=== PATIENT | female | born 1945 | race Caucasian/White ===

== ENCOUNTER → 2016-09-28 | Outpatient (CLI) | payer OTHER, BC | LOC: EKG 11:45 | PROVIDERS: ATTEND Nurse Practitioner Family | DX: M25.551 Pain in right hip (principal); E03.9 Hypothyroidism, unspecified; I10 Essential (primary) hypertension; Z86.39 Personal history of other endocrine, nutritional and metabolic disease | CPT/HCPCS: 99214 ==

== ENCOUNTER → 2016-09-28 | Outpatient (CLI) | payer OTHER, BC ==
[2016-09-28 13:26] LABS: BASOPHILS # (AUTO) 0.02 10*3/UL; BASOPHILS % (AUTO) 0.4 % (0-1); EOSINOPHILS % (AUTO) 6.9 % (0-8); HEMOGLOBIN 13.4 g/dL (12.0-16.0); IMM GRAN % (AUTO) 0.2 % (0-5); IMM GRAN# (AUTO) 0.01 10*3/UL; LYMPHOCYTES # (AUTO) 1.42 10*3/uL; LYMPHOCYTES % (AUTO) 28.9 % (10-50); MEAN CORPUSCULAR HEMOGLOBIN 27.3 PG (27-31); MEAN CORPUSCULAR HGB CONC 31.9 g/dL (33-37); MEAN PLATELET VOLUME 10.3 FL (7.4-12.2); MONOCYTES % (AUTO) 10.2 % (5-15); NEUTROPHILS # (AUTO) 2.62 10*3/UL; NEUTROPHILS % (AUTO) 53.4 % (50-80); RDW COEFFICIENT OF VARIATION 16.2 % (11.5-14.5); WHITE BLOOD COUNT 4.91 10^3/uL (4.8-10.8)
[2016-09-28 13:27] LABS: PLATELET MORPHOLOGY COMMENT NORMAL MORPHOLOGY (NORM)
[2016-09-28 14:00] LABS: POTASSIUM 4.4 meq/L (3.8-5.2); SODIUM 141 meq/L (135-145)
[2016-09-28 14:01] LABS: ASPARTATE AMINO TRANSFERASE 17 IU/L (8-39); BILIRUBIN,TOTAL 0.7 mg/dL (0.3-1.2); BLOOD UREA NITROGEN 16 mg/dL (7-22); BUN/CREATININE RATIO 26.66 (6-20); CALCIUM 9.8 mg/dL (8.7-10.7); CHLORIDE 102 meq/L (98-112); CREATININE 0.6 mg/dL (0.50-1.20); EST GLOMERULAR FILTRATION > 60 (>60 ml/min/1.73m(2)); GLUCOSE 71 mg/dL (78-110); TOTAL PROTEIN 6.9 g/dL (6.1-8.0)
[2016-09-28 14:02] LABS: HDL CHOLESTEROL 71 mg/dL (40-150); TRIGLYCERIDES 134 mg/dL (44-200)
[2016-09-30 07:14] LABS: PARATHYROID HORMONE 33 pg/mL (15-65)
== END ==
LOC: MOB LAB 11:53
PROVIDERS: ATTEND Nurse Practitioner Family
DX: M25.551 Pain in right hip (principal); E03.9 Hypothyroidism, unspecified; I10 Essential (primary) hypertension; E89.2 Postprocedural hypoparathyroidism
CPT/HCPCS: 36415; 80053; 80061; 83970; 84443; 85025; 86900; 86901; 87641; G0463; 99214

== ENCOUNTER → 2016-10-02 | Outpatient (CLI) | payer OTHER, BC ==
--- NOTE | 2016-10-02 12:34 | EKG ---
[address] [address] Measurements Intervals [place] Rate: 68 P: 9 NM: 183 QRS: 1 QRSD: 95 T: 22 QT: 388 QTc: 406 Interpretive Statements SINUS RHYTHM Compared to ECG 03/21/2016 14:46:08 No significant changes Electronically Signed On 10-02-16 17:56:32 MST by Jeffrey Martinez [email or web address]
== END ==
LOC: EKG 12:17
PROVIDERS: ATTEND Nurse Practitioner Family
DX: M25.551 Pain in right hip (principal); I10 Essential (primary) hypertension
CPT/HCPCS: 93005; 93010

== ENCOUNTER → 2016-11-16 | Outpatient (CLI) | payer OTHER, BC | LOC: MMPC 09:00 | PROVIDERS: ATTEND Nurse Practitioner Family | DX: R05 Cough (principal); J45.909 Unspecified asthma, uncomplicated | CPT/HCPCS: 99213; G0463 ==

== ENCOUNTER → 2016-11-22 | Outpatient (CLI) | payer OTHER, BC | LOC: MMPC 09:00 | PROVIDERS: ATTEND Nurse Practitioner Family | DX: J45.21 Mild intermittent asthma with (acute) exacerbation (principal) | CPT/HCPCS: 99214; G0463 ==

== ENCOUNTER → 2016-11-26 | Outpatient (CLI) | payer OTHER, BC ==
[2016-11-26 11:13] LABS: BILIRUBIN,URINE NEGATIVE (NEG); CLARITY,URINE CLEAR (CLEAR); GLUCOSE, URINE (UA) NEGATIVE (NEG); LEUKOCYTE ESTERASE ,URINE MODERATE (NEG); NITRATE,URINE NEGATIVE (NEG); OCCULT BLOOD,URINE SMALL (NEG); PH,URINE 5.5 (5.0-8.5); PROTEIN,URINE NEGATIVE (NEG); UROBILINOGEN,URINE 0.2 EU/dL (0.2)
[2016-11-26 11:20] LABS: URINE SAMPLE TYPE CLEAN CATCH URINE
[2016-11-26 11:21] LABS: BACTERIA,URINE MODERATE; WBC,URINE 35-40
== END ==
LOC: LAB 10:52
PROVIDERS: ATTEND Nurse Practitioner Family
DX: M54.5 Low back pain (principal); R30.0 Dysuria; R82.99 Other abnormal findings in urine
CPT/HCPCS: 81001; 87077; 87088; 87186

== ENCOUNTER 2017-02-02 14:20 | Emergency (ER) | payer OTHER, BC ==
[2017-02-02 15:00] VITALS: RESP 16; TEMP 97.2
--- NOTE | 2017-02-03 04:23 | PDOC ---
Lower Extremity Problem HPI - General Chief Complaint: Integumentary Stated Complaint: BLISTER ON LEFT KNEE Date Seen by Provider: 02/02/17 Time Seen by Provider: 14:25 Source: POSITIVE: Patient Exam Limitations: POSITIVE: No limitations Nurse's Notes Reviewed & Considered: Yes - History of Present Illness Initial Comments: The patient is a 71-year-old female. She states that this morning she noticed a blister to have been formed over her left patella. Patient has had bilateral knee and bilateral hip replacements. She states her left knee has been replaced twice; she states that she developed a staph infection in her left knee following her first replacement. Patient is therefore very concerned that she not develop any further infections to her knee. Yesterday the patient was watching her granddaughter play soccer and she states she may have sunburned the skin over her left knee, however she is not sunburned elsewhere. She was wearing short pants which terminated chest below the knee. She states that the blister is not particularly painful. It is located directly over the incision scar over her patella. Mild erythema around the blister. Patient has had no recent trauma. No sensory motor or vascular symptoms. Weightbearing is not painful. Range of motion is intact. No effusion. Body Location Affected: REPORTS: Lower Extremity (L) Timing: REPORTS: Gradual (As above; see diagram) Duration: <24 hours Severity: Mild Recent Injury: REPORTS: No Context of Injury: REPORTS: Other (Possible sunburn) Quality: REPORTS: Other (Lesion is not painful) Modifying Factors: REPORTS: Nothing Exacerbates Associated Symptoms: DENIES: Chest Pain, Shortness of Breath, Rapid Heart Rate, Fainting, Other Similar Symptoms Previously: No Recent Care Received: REPORTS: Denies - Patient Home Medications Home Medications: Home Medications Mirabegron [Myrbetriq] 25 mg PO DAILY tab 08/03/16 Lifitegrast [Xiidra] 1 each OP BID 09/28/16 Albuterol Sulfate [Albuterol Neb Soln] 2.5 mg IH QID #3 inhaler 11/15/16 Celecoxib [Celebrex] 1 cap ORAL BID #180 capsule 12/19/16 Esomeprazole Magnesium [Nexium] 1 cap ORAL QD #90 capsule 12/19/16 Fesoterodine Fumarate [Toviaz] 1 tab PO DAILY #10 tab 12/19/16 Fluticasone/Salmeterol [Advair 100-50 Diskus] 50 - 100 mcg INH PRN PRN #3 inhaler 12/19/16 Hydrochlorothiazide 1 tab PO DAILY #90 tab 12/19/16 Levothyroxine Sodium [Synthroid] 1 tab ORAL QD #90 tab NS 12/19/16 Lisinopril 1 tab ORAL QD #90 tab 12/19/16 Montelukast Sodium [Singulair] 1 tab ORAL QD #90 tab 12/19/16 Pregabalin [Lyrica] 1 cap PO BID #180 cap 01/02/17 Cephalexin [Keflex] 500 mg PO Q8H #30 cap 02/02/17 - Patient Allergies Allergies/Adverse Reactions: Allergies Allergy/AdvReac Type Severity Reaction Status Date / Time codeine [Codeine] Allergy Intermediate HALLUCINATI Verified 02/02/17 14:30 ONS latex Allergy Intermediate RASH Verified 02/02/17 14:30 meperidine HCl [From Demerol] Allergy Intermediate HALLUCINATI Verified 14:30 ONS nitrofurantoin Allergy Intermediate rash Verified 02/02/17 14:30 macrocrystalline [From Macrodantin] tramadol Allergy Intermediate Hives Verified 02/02/17 14:30 Past Medical History - heen HEENT History: Denies History Cardiovascular History: Hypertension Respiratory History: Asthma, Sleep Apnea, Home CPAP Use Gastrointestinal History: GERD Genitourinary History: Denies History, Other (please comment) Additional 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 Endocrine History: Hypothyroidism Musculoskeletal History: Fibromyalgia, Limited ROM, Joint Pain Prosthesis or Implant: Yes (L TKA, DENTAL ) Additional Musculoskeletal History: BILAT knee replacement, BILAT HIPS Neurological History: Denies History Blood Disorders: Denies History Additional Blood Disorders History: BLOOD CLOT IN RIGHT LEG IN HIGH SCHOOL Psychiatric History: Denies History History of Sexually Transmitted Diseases: No Cancer History: Denies History In Past Year Been Physically Harmed or Verbally Threatened: No History of MDRO: No History of Other Communicable Diseases: No Tobacco Use: Never Smoker Alcohol Use: Rarely Substance Use Type: None Previous Surgical History: Yes Type / Date of Surgery: T&A/ BILAT CARPAL TUNNEL RELEASE/ PARATHYROIDECTOMY/ LEFT TKA X 2/ TUBAL Anesthesia Reactions: No Malignant Hyperthermia: No Significant Family History: No pertinent family hx Past Medical History Reviewed: Reviewed - No Changes ROS - Limitations ROS Limitations: No Limitations Constitution: REPORTS: Denies Symptoms Cardiovascular: REPORTS: Denies Cardiac Symptoms Respiratory: REPORTS: Denies Resp Symptoms Neurological: REPORTS: Denies Neuro Symptoms Gastrointestinal: REPORTS: Denies GI Symptoms Endocrine: REPORTS: Denies Symptoms Musculoskeletal: REPORTS: Other (Blister form over her left patella over the surgical scar from her previous knee replacements) Genitourinary: REPORTS: Denies Symptoms Eyes: REPORTS: Denies Symptoms ENT: REPORTS: Denies Symptoms Skin: REPORTS: Other (Clear blister as above; see diagram) Immunologic: POSITIVE: Denies Symptoms Psychiatric: POSITIVE: Denies Psych Symptoms Lower Ext Problem Exam - General Appearance General Appearance: POSITIVE: Alert, Cooperative, No Acute Distress - Extremities Lower Extremity: POSITIVE: Normal Inspection, Non-Tender, No Pedal Edema, Other (Blister about 2 x 2 centimeter over her left patella; see diagram.) Joint Exam: POSITIVE: Joints Normal, Normal ROM, Normal Gait, Normal Weight Bearing Vascular: POSITIVE: No Vascular Compromise, Full Pulses, Equal Pulses - Neuro / Psych Neuro/Psych: POSITIVE: Sensation Normal, Motor Normal, Oriented to Person, Oriented to Place, Oriented to Time, coal passer Normal as Tested, Mood Appropriate, Affect Appropriate - Neck / Back / Pelvis Back / Neck: POSITIVE: Normal Inspection, Normal ROM - Skin Skin: POSITIVE: Erythema (Slight erythema surrounding blister as above;), Other (Blister, about 2 x 2 centimeters in dimension. Blister fluid is clear and does not appear purulent.) - Respiratory / CVS Respiratory / CVS: POSITIVE: No Respiratory Distress, Breath Sounds Normal, Regular Rate/Rhythm, Heart Sounds Normal Peripheral Pulses: Radial (R): 2+, Radial (L): 2+, Dorsalis-pedis (R): 2+, Dorsalis-pedis (L): 2+ Images - Uploaded Photos Uploaded Photos: - Lower Extremities Lower Extremities: 1 - Blister; blister fluid clear and not purulent Procedure - Additional Procedures Additional Procedures: Other (The blister/bulla over the left patella was sterilely unroofed and blister fluid sent for culture and Gram stain. Gram stain showed no white blood cells and no organisms. Bacitracin dressing was then placed.) Lower Ext Problem Progress - Results Reviewed by me Lab Results Reviewed: Yes (Gram stain shows no white blood cells or organisms; culture pending) - Patient's Progress Pain Medication Addressed: POSITIVE: Not Applicable School/Work Release Addressed: POSITIVE: Not Applicable Re-Examine Time: 14:45 Re-Examine Comment: Blister unroofed and fluid cultured as above. Followed by bacitracin dressing. Status: POSITIVE: Improved, Re-Examined - Consult Counseled: POSITIVE: Patient, RE: Lab Results, RE: DX, RE: Need for F/U Patient Care Time - Estimated PCT Patient Care Time (In Minutes): 25 Vital Signs - VS Reviewed Vital Signs Reviewed: Yes Discharge Clinical Impression: Blister of knee, left Discharge Disposition: Discharged to Home Condition: Fair Prescriptions / Orders: Cephalexin [Keflex] 500 mg PO Q8H #30 cap Patient Instructions Given at Discharge: Blister (ED) Additional Instructions: I have cultured the fluid from your blister. Please wash the area well with soap and water daily and keep well-lubricated with bacitracin or Neosporin. Please do not allow blistered area to dry out. Since you have had a history of staph infections will cover you with Keflex, one every 8 hours. Return anytime if condition worsens in any way. Follow-up with your primary care provider. Follow Up With: DSETINEE VARGAS FNP [Primary Care Provider] - (Instructions as above. Follow- up with your primary care provider. Return here as necessary.)
== END 2017-02-02 14:57 | disposition home or self-care (01) ==
LOC: ER 14:20
DX: S80.222A Blister (nonthermal), left knee, initial encounter (principal); Z86.14 Personal history of Methicillin resistant Staphylococcus aureus infection
CPT/HCPCS: 87070; 87205; 99282

== ENCOUNTER → 2017-03-18 | Outpatient (CLI) | payer OTHER, BC ==
[2017-03-18 12:45] LABS: BILIRUBIN,URINE NEGATIVE (NEG); CLARITY,URINE CLEAR (CLEAR); COLOR,URINE YELLOW; GLUCOSE, URINE (UA) NEGATIVE (NEG); NITRATE,URINE NEGATIVE (NEG); OCCULT BLOOD,URINE NEGATIVE (NEG); PH,URINE 5.5 (5.0-8.5); PROTEIN,URINE NEGATIVE (NEG); UROBILINOGEN,URINE 0.2 EU/dL (0.2)
[2017-03-18 12:46] LABS: URINE SAMPLE TYPE CLEAN CATCH URINE
[2017-03-18 12:48] LABS: RBC,URINE 0 /hpf; SQUAMOUS EPITHELIAL CELL,UR FEW
== END ==
LOC: LAB 12:08
PROVIDERS: ATTEND Urology
DX: N39.0 Urinary tract infection, site not specified (principal); R82.99 Other abnormal findings in urine
CPT/HCPCS: 81001; 87077; 87088; 87186